=== PATIENT | female | born 1965 ===

== ENCOUNTER 2016-07-09 09:42 | Emergency (ER) | payer OTHER ==
[2016-07-09 09:42] VITALS: BMI 23.4
[2016-07-09 10:09] VITALS: RESP 18
[2016-07-09] MEDS ORDERED: Alum-Mag Hydrox-Simethicone Susp (30 mL) PO STA (10:41)
[2016-07-09] MEDS ORDERED: Belladonna-Phenobarbital PO STA (10:41)
[2016-07-09 11:13] LABS: RBC URINE 1 /hpf (0-3); URINE BACTERIA RARE (<OCC); URINE BILIRUBIN NEGATIVE (NEGATIVE); URINE BLOOD NEGATIVE (NEGATIVE); URINE COLOR Yellow (YELLOW); URINE GLUCOSE (UA) NORMAL (Normal); URINE KETONE NEGATIVE (NEGATIVE); URINE LEUKOCYTE ESTERASE TRACE Leu/uL (Negative); URINE PROTEIN NEGATIVE (NEGATIVE); URINE UROBILINOGEN NORMAL mg/dL (0.2-1.0); WBC URINE 4 /hpf (0-5)
--- NOTE | 2016-07-09 11:19 | C.PDOC ---
History Of Present Illness The patient, a 50 y/o female, presents to the ED for evaluation of epigastric abdominal pain which began around 4 days ago. Patient describes her pain as non- radiating. She reports experiencing nausea last night but denies vomiting. Patient also reports dark, cloudy urine for the past 2 days. She states she feels gassy and has been belching a lot. Otherwise, she denies fever, chills, diarrhea, constipation, and back pain. Time Seen by Provider: 07/09/16 10:15 Chief Complaint (Nursing): Abdominal Pain History Per: Patient History/Exam Limitations: no limitations Onset/Duration Of Symptoms: Days (4) Current Symptoms Are (Timing): Still Present Location Of Pain/Discomfort: Epigastric Radiation Of Pain To:: None Quality Of Discomfort: "Pain" Associated Symptoms: Nausea, Urinary Symptoms (+dysuria assocaited with dark, cloudy urine ). denies: Fever, Chills, Vomiting, Diarrhea, Back Pain, Constipation Exacerbating Factors: None Alleviating Factors: None Recent travel outside of the [place]: No Additional History Per: Patient Abnormal Vaginal Bleeding: No Past Medical History Reviewed: Historical Data, Nursing Documentation, Vital Signs Vital Signs: Last Vital Signs Temp 98.8 F 07/09/16 11:51 Pulse 88 07/09/16 11:51 Resp 18 07/09/16 11:51 BP 119/81 07/09/16 11:51 Pulse Ox 98 07/09/16 12:03 - Medical History PMH: Gastritis, GERD, HTN (PT DENIES), Hypercholesterolemia (PT DENIES) Surgical History: Endoscopy - [facility] Procedures CLOSED ENDOSCOPIC BIOPSY OF LARGE INTESTINE (07/09/13) ESOPHAGOGASTRODUODENOSCOPY [EGD] W/CLOSED BIOPSY (07/09/13) Family History: States: Unknown Family Hx - Social History Hx Tobacco Use: No Hx Alcohol Use: No Hx Substance Use: No - Immunization History Hx Tetanus Toxoid Vaccination: No Hx Influenza Vaccination: No Hx Pneumococcal Vaccination: No Review Of Systems Constitutional: Negative for: Fever, Chills, Weakness Cardiovascular: Negative for: Chest Pain, Palpitations Respiratory: Negative for: Shortness of Breath, Pleuritic Pain Gastrointestinal: Positive for: Nausea, Abdominal Pain (epigastric ), Other (+ increased gas and belching ). Negative for: Vomiting, Diarrhea, Constipation Genitourinary: Negative for: Dysuria Musculoskeletal: Negative for: Back Pain Neurological: Negative for: Headache Physical Exam - Physical Exam Appears: Non-toxic, No Acute Distress Skin: Warm, Dry, No Diaphoretic, No Pale Head: Atraumatic, Normacephalic Eye(s): bilateral: Normal Inspection Oral Mucosa: Moist Neck: Normal ROM, Supple Chest: Symmetrical, No Deformity, No Tenderness Cardiovascular: Rhythm Regular, No Murmur Respiratory: Normal Breath Sounds, No Rales, No Rhonchi, No Wheezing Gastrointestinal/Abdominal: Bowel Sounds, Soft, No Tenderness, No Distention, No Guarding, No Rebound, No Hernia, No Ascites Back: Normal Inspection, No CVA Tenderness, No Vertebral Tenderness, No Paraspinal Tenderness Extremity: Bilateral: Atraumatic, Normal Color And Temperature, Normal ROM Neurological/Psych: Oriented x3, Normal Speech Gait: Steady ED Course And Treatment O2 Sat by Pulse Oximetry: 98 (on RA) Pulse Ox Interpretation: Normal Medical Decision Making Medical Decision Making: Impression: 50y/o female with epigastric pain Plan: * UA * PO * Maalox PO * Lidocaine 2% Viscous PO * reassess and disposition Prior Records Reviewed: Patient was evaluated in the ED on 04/16/16 for similar complaints. Review of patient's old records show that patient has presented to the ED multiple times in the past for similar complaints and has been non- compliant with medication and outpatient treatment. Progress Notes: labs ordered and reviewed. Patient received PO, Maalox, and Lidocaine Viscous 2% PO. UA was negative for UTI or other abnormality Upon reevaluation, patient has no fever and resting comfortably in no distress. she reports improvement of abdominal pain. Abdomen remained soft and non-tender. No signs of surgical pathology. I advise patient on dietary changes and to follow up in the clinic for further evaluation. Disposition Counseled Patient/Family Regarding: Need For Followup, Rx Given - Disposition Referrals: Residency Program Coordinator Service [Outside] [facility] [Outside] Disposition: HOME/ ROUTINE Disposition Time: 11:19 Condition: STABLE Additional Instructions: Por favor, siga con taylor mdico o clnica primaria y con IG para jacques evaluacin m s detallada [place] los medicamentos segn lo prescrito. Regrese al servicio de urgencias en cualquier momento si los sntomas persisten o empeoran. 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 - Scribe Statement The provider has reviewed the documentation as recorded by the Scribe (Tanvi Tovar) All medical record entries made by the Scribe were at my direction and personally dictated by me. I have reviewed the chart and agree that the record accurately reflects my personal performance of the history, physical exam, medical decision making, and the department course for this patient. I have also personally directed, reviewed, and agree with the discharge instructions and disposition.
[2016-07-09 11:52] VITALS: BP 119/81; PULSE 88; TEMP 98.8
[2016-07-09 11:59] VITALS: O2SAT 98
== END 2016-07-09 11:58 | disposition home or self-care (01) ==
LOC: C.ER 09:42
DX: K29.70 Gastritis, unspecified, without bleeding (principal)